=== PATIENT | female | born 1935 | race Caucasian/White ===

== ENCOUNTER 2018-11-20 06:30 | Day surgery (SDC) | payer MEDICARE ==
[~2018-11-20 06:30] MED LIST: Buffered Lidocaine 1% SYRIN* 1 ML/SYRINGE INTRADERM ONE; Dexamethasone IV* 4 MG/ML 1 ML (4 MG) IV SLOW PU ONE; Famotidine IV* 10 MG/ML 2 ML (20 mg) IV ONE; Lactated Ringers 1000 ML Bag* 1,000 ML IV SCH
[2018-11-20] MEDS ORDERED: ceFAZolin 2 GM in NS PREMIX(*) 2 GM/100 ML BAG IVPB ONE (07:21)
[2018-11-20] MEDS ORDERED: Dexamethasone IV* 4 MG/ML 1 ML (4 MG) ONE (07:21)
[2018-11-20] MEDS ORDERED: Famotidine IV* 10 MG/ML 2 ML (20 mg) ONE (07:21)
[2018-11-20] MEDS ORDERED: fentaNYL* 50 MCG/ML 2 ML VIAL (100 MCG VIAL) ONE (07:56)
[2018-11-20] MEDS ORDERED: Midazolam* 1 MG/ML 2 ML VIAL (2 MG) ONE (07:56)
[2018-11-20] MEDS ORDERED: Ondansetron INJ* 2 MG/ML VIAL ONE (07:57)
[2018-11-20] MEDS ORDERED: Propofol* 10 MG/ML 20 ML BTL ONE (07:57)
[2018-11-20] MEDS ORDERED: Naloxone* 0.4 MG/ML 1 ML VIAL IV PRN (08:20)
[2018-11-20] MEDS ORDERED: Ondansetron INJ* 2 MG/ML VIAL IV PRN (08:20)
[2018-11-20] MEDS ORDERED: Bupivacaine 0.25% SDV PF* 10 ML VIAL INJ ONE (08:25)
[2018-11-20] MEDS ORDERED: Lidocain 1% EPI 1:100,000 * 30 ML MDV ONE (08:25)
[2018-11-20] MEDS ORDERED: Mineral Oil Sterile, TOPICAL* 25 ML BTL ONE (09:00)
[2018-11-20 10:56] VITALS: BP 123/65
== END 2018-11-20 11:03 | disposition home or self-care (01) ==
LOC: OR 06:30
PROVIDERS: ATTEND Plastic Surgery
DX: C44.41 Basal cell carcinoma of skin of scalp and neck (principal); Z87.891 Personal history of nicotine dependence; M19.90 Unspecified osteoarthritis, unspecified site
CPT/HCPCS: 88305; 88331; 88332; A9270-GY; J0690; J1100; J2250; J2405; J2704; J3010; J3490